=== PATIENT | male | born 1970 | race Caucasian/White ===

== ENCOUNTER → 2024-02-07 10:03 | Outpatient (CLI) | payer BC, SELFPAY ==
--- NOTE | 2024-02-07 10:05 | DI.RAD.S_ITS ---
PROCEDURE: XR HIP W PEL IF DONE LT 2V INDICATIONS: left hip pain w/ pelvic numbness TECHNIQUE: AP pelvis with lateral view(s) of the left hip(s). COMPARISON: None. FINDINGS: Bones: No fractures or dislocations. No evidence of avascular necrosis of femoral head. Pelvic ring appears intact. No suspicious bony lesions. Soft tissues: The visualized bowel gas pattern is normal. No suspicious soft tissue calcifications. IMPRESSION: No pelvic or hip fracture. No evidence of avascular necrosis. Dictated by: Chad Whitt M.D. on 02/07/2024 at 14:01 Approved by: Chad Whitt M.D. on 02/07/2024 at 14:02
--- NOTE | 2024-02-07 10:05 | DI.RAD.S_ITS ---
PROCEDURE: XR LUMBAR SPINE 2-3V INDICATIONS: left hip pain w/ pelvic numbness TECHNIQUE: 3 views of the lumbar spine were acquired. COMPARISON: None. FINDINGS: Bones: 5 iup-nwz-cjxkydi vertebrae are present. There is normal bony alignment. Loss of disc height, degenerative endplate changes and bilateral facet arthrosis at L4-5 and L5-S1 levels. No vertebral body compression fractures. No suspicious bony lesions. Soft tissues: Overlying bowel gas pattern is normal. No suspicious soft tissue calcifications. IMPRESSION: Moderate degenerative disc disease at L5-S1 level. Ewju-oz-vcxtleuu degenerative disc disease at L4-5 level. No acute compression fracture or significant spondylolisthesis. Dictated by: Chad Whitt M.D. on 02/07/2024 at 16:29 Approved by: Chad Whitt M.D. on 02/07/2024 at 16:35
== END ==
PROVIDERS: PCP Family Medicine; Referring Provider Nurse Practitioner Family; Visit Provider Nurse Practitioner Family
DX: M51.36 Other intervertebral disc degeneration, lumbar region (principal); M51.37 Other intervertebral disc degeneration, lumbosacral region; M25.552 Pain in left hip
CPT/HCPCS: 72100; 73502

== ENCOUNTER → 2024-02-15 12:39 | Outpatient (CLI) | payer BC, SELFPAY ==
[2024-02-15 13:02] LABS: Add Manual Diff / Slide Review NO; Basophils Absolute Auto 0 /uL (0-100); Basophils Percent Auto 0.6 % (0-2); Eosinophils Absolute Auto 100 /uL (0-450); Eosinophils Percent Auto 1.1 % (2-4); Hematocrit 42.3 % (41-53); Hemoglobin 14.5 g/dL (13.5-17.5); Lymphocytes Absolute Auto 1800 /uL (1100-4500); Lymphocytes Percent Auto 21.7 % (25-40); Mean Corpuscular HGB Conc 34.4 % (30-36); Monocytes Absolute Auto 600 /uL (0-900); Monocytes Percent Auto 7.7 % (3-14); Neutrophils Absolute Auto 5700 /uL (1500-7000); Neutrophils Percent Auto 68.9 % (50-75); Platelet Count 244 X10^3/uL (150-400); Red Cell Distribution Width 14.3 % (11.6-14.8); White Blood Cell Count 8.3 X10^3/uL (4.5-11.0)
[2024-02-15 13:21] LABS: Alanine Aminotransferase 37 IU/L (<50); Albumin 4.8 g/dL (3.5-5.0); Albumin Globulin Ratio 1.8 (1.0-2.8); Alkaline Phosphatase 71 U/L (38-126); Aspartate Aminotransferase 35 IU/L (17-59); BUN Creatinine Ratio 20.2 (6-22); Bilirubin Total 0.7 mg/dL (0.2-1.3); Blood Urea Nitrogen 17 mg/dL (9-20); Calcium 9.3 mg/dL (8.4-10.2); Carbon Dioxide 30 mmol/L (22-32); Chloride 106 mmol/L (98-107); Cholesterol 203 mg/dL (140-199); Estimated Glomerular Filt Rate > 60 mL/min (>60); Globulin 2.7 g/dL (1.7-4.1); Glucose 93 mg/dL (70-100); HDL Cholesterol 74 mg/dL (40-60); HEMOLYSIS < 15 (0-50); LDL Cholesterol Calculated 115 mg/dL (<100); Potassium 4.3 mmol/L (3.4-5.1); Sodium 140 mmol/L (137-145); Total Protein 7.5 g/dL (6.3-8.2); Triglycerides 71 mg/dL (35-150)
== END ==
PROVIDERS: PCP Family Medicine; Referring Provider Family Medicine; Visit Provider Family Medicine
DX: R03.0 Elevated blood-pressure reading, without diagnosis of hypertension (principal); E78.5 Hyperlipidemia, unspecified
CPT/HCPCS: 36415; 80053; 80061; 85025

== ENCOUNTER → 2024-02-20 16:42 | Outpatient (CLI) | payer BC, SELFPAY ==
--- NOTE | 2024-02-20 17:30 | DI.MRI.S_ITS ---
PROCEDURE: MR LUMBAR SPINE WO CON INDICATIONS: low back pain TECHNIQUE: Noncontrast sagittal T1 spin echo and T2 fast echo, sagittal STIR, and T2 fast spin echo through the lumbar spine. In cases with scoliosis, additional coronal T2 fast spin echo may be performed. COMPARISON: [facility], CR, XR LUMBAR SPINE 2-3V, 02/07/2024, 10:19. FINDINGS: Image quality: Excellent. Alignment and Curvature: There is normal bony alignment. Transitional vertebral body anatomy with lumbarization of the S1 vertebral body. Bone Marrow: Mild degenerative endplate changes at L5-S1. Marrow is of normal overall signal. No acute vertebral body compression fractures. Spinal Cord: Conus medullaris terminates at the L1 level. Visualized cord demonstrates normal signal and size. Paraspinous Soft Tissues: No paravertebral masses. T12-L1: Normal appearance. L1-L2: Normal appearance. L2-L3: Normal appearance. L3-L4: Mild disc bulge. Facet arthropathy and thickening of ligamentum flavum. Epidural lipomatosis. Mild central canal stenosis. No neural foraminal stenosis. L4-L5: Disc desiccation and mild disc height loss. Posterior disc bulge. Facet arthropathy and thickening of ligamentum flavum. Mild to moderate central canal stenosis. Moderate left and mild right neural foraminal stenosis. L5-S1: Disc desiccation and moderate disc height loss. Diffuse disc bulge with small superimposed central disc protrusion. Facet arthropathy and thickening of the ligamentum flavum. No significant central canal stenosis. Moderate bilateral neural foraminal stenosis. IMPRESSION: 1. Degenerative changes of the lower lumbar spine as described above. 2. Zbde-gt-vdjxvfsq central canal stenosis at L4-5. 3. Moderate neural foraminal stenosis on the left at L4-5 and bilaterally at L5-S1. Dictated by: Aydin Louis M.D. on 02/20/2024 at 17:08 Approved by: Aydin Louis M.D. on 02/20/2024 at 17:17
--- NOTE | 2024-02-20 17:30 | DI.MRI.S_ITS ---
PROCEDURE: MR HIP LT WO CON INDICATIONS: Left sided hip pain TECHNIQUE: Noncontrast coronal T1 spin echo and STIR through the bony pelvis. Coronal and axial T2 fast spin echo with fat saturation, sagittal T1 spin echo, and oblique axial T2 fast spin echo with fat saturation through the hip. COMPARISON: [facility], MR, MR LUMBAR SPINE WO CON, 02/20/2024, 17:29. [facility], CR, XR HIP W PEL IF DONE LT 2V, 02/07/2024, 10:19. FINDINGS: Image quality: Diagnostic Bones: Pelvic ring: Intact Femoral head and neck: No fracture. No osteonecrosis. Ligamentum teres: Intact. Lumbar spine and sacrum: No acute finding. Tendons: Abductors: Partial tears and nztd-nb-bjwmnthl tendinopathy, particularly of the medius Adductors and rectus abdominis: Intact. No pubic symphyseal edema. IT band: Intact. Iliopsoas: Sjkz-cg-llluqgny insertional tendinopathy Hamstrings: Yrmb-ij-ewoaairb tendinopathy at the origin Rectus femoris: Intact. Sartorius: Intact. Joint: Joint space: No significant effusion. Labrum: Mild irregularity at the superior and anterior labrum, probably due to degenerative changes versus scarring from prior injury. No discrete acute fluid signal. Cartilage: Mild degenerative changes and cartilage thinning and heterogeneity. Soft tissues: Quadratus femoris: Rjir-mh-xfbpjvsi edema. Piriformis: Symmetric. Intrapelvic structures: Bladder is unremarkable. Visualized intrapelvic structures appear unremarkable on limited musculoskeletal protocol MRI evaluation IMPRESSION: Aexo-gm-zuwbzqsx edema of the quadratus femoris, probably femoral ischial impingement. Tendinopathy involving the abductors insertion, iliopsoas insertion, and hamstring origins. Overall mild degenerative changes. Labral mild irregularity of the anterior superior portion not well evaluated on this non-arthrographic study, probably from degenerative changes versus prior injury. If there is further concern, consider MR arthrogram. No acute fracture or dislocation. Dictated by: Chase Zacarias M.D. on 02/20/2024 at 20:24 Approved by: Chase Zacarias M.D. on 02/20/2024 at 20:29
== END ==
PROVIDERS: PCP Family Medicine; Referring Provider Family Medicine; Visit Provider Family Medicine
DX: M47.816 Spondylosis without myelopathy or radiculopathy, lumbar region (principal); M47.817 Spondylosis without myelopathy or radiculopathy, lumbosacral region; M48.061 Spinal stenosis, lumbar region without neurogenic claudication; M48.07 Spinal stenosis, lumbosacral region; M25.452 Effusion, left hip; M54.50 Low back pain, unspecified; M25.559 Pain in unspecified hip
CPT/HCPCS: 72148; 73721

== ENCOUNTER → 2025-08-11 09:03 | Outpatient (CLI) | payer BC, SELFPAY ==
[2025-08-11 09:37] LABS: Add Manual Diff / Slide Review NO; Hematocrit 39.7 % (41-53); Hemoglobin 13.6 g/dL (13.5-17.5); Lymphocytes Absolute Auto 1600 /uL (1100-4500); Mean Corpuscular HGB Conc 34.3 % (30-36); Mean Corpuscular Hemoglobin 34.3 PG (26-34); Mean Corpuscular Volume 100.0 fL (80-100); Platelet Count 229 X10^3/uL (150-400)
[2025-08-11 10:04] LABS: Alanine Aminotransferase 23 IU/L (<50); Albumin 4.3 g/dL (3.5-5.0); Albumin Globulin Ratio 1.7 (1.0-2.8); Alkaline Phosphatase 59 U/L (38-126); Blood Urea Nitrogen 11 mg/dL (9-20); Calcium 9.5 mg/dL (8.4-10.2); Carbon Dioxide 25 mmol/L (22-32); Chloride 108 mmol/L (98-107); Cholesterol 154 mg/dL (140-199); Estimated Glomerular Filt Rate > 60 mL/min (>60); Globulin 2.5 g/dL (1.7-4.1); Glucose 93 mg/dL (70-99); HDL Cholesterol 50 mg/dL (40-60); HEMOLYSIS < 15 (0-50); Sodium 140 mmol/L (137-145); Total Protein 6.8 g/dL (6.3-8.2); Triglycerides 118 mg/dL (35-150)
[2025-08-11 10:15] LABS: Potassium 4.5 mmol/L (3.4-5.1)
== END ==
PROVIDERS: PCP Family Medicine; Referring Provider Family Medicine; Visit Provider Family Medicine
DX: R03.0 Elevated blood-pressure reading, without diagnosis of hypertension (principal); E78.5 Hyperlipidemia, unspecified
CPT/HCPCS: 36415; 80053; 80061; 82043; 82570; 85025